=== PATIENT | female | born 1960 | race African-American/Black ===

== ENCOUNTER 2020-12-23 15:22 | Emergency (ER) | payer MEDICAID ==
[~2020-12-23] VITALS: Ht 160 cm; Wt 65.0 kg
[2020-12-23] MEDS ORDERED: OMEPRAZOLE 20MG CAPSULE EXTENDED RELEASE PO ONE (16:00)
[2020-12-23] MEDS ORDERED: HYDROCODONE/ACETAMINOPHEN 5/325MG TABLET PO ONE (16:00)
[2020-12-23] MEDS ORDERED: ONDANSETRON HCL 4MG/2ML INJ IM ONE (16:00)
[2020-12-23] MEDS ORDERED: MORPHINE SULFATE 4 MG/ML CPJ (NOT FOR IM USE) IV STA (17:55)
[2020-12-23] MEDS ORDERED: ONDANSETRON HCL 4MG/2ML INJ IV STA (17:55)
[2020-12-23] MEDS ORDERED: SODIUM CHLORIDE 0.9% 1,000 ML IV ONE (18:00)
[2020-12-23 18:31] LABS: BASOPHILS % 0.4 % (0.0-2.0); HEMATOCRIT. 34.1 % (36.0-48.0); HEMOGLOBIN. 11.5 g/dL (12.0-16.0); LYMPHOCYTES % 14.9 % (20.0-50.0); MEAN CORPUSCULAR HEMOGLOBIN 29.6 pg (28.0-32.0); MEAN CORPUSCULAR VOLUME 87.3 fL (81.0-99.0); MEAN PLATELET VOLUME 7.9 fl (7.4-10.4); MONOCYTES % 6.8 % (2.0-8.0); NEUTROPHILS % 74.9 % (40.0-76.0); PLATELET 199 x1000/uL (130-400); RED CELL DISTRIBUTION WIDTH 15.2 % (11.6-14.6)
[2020-12-23 18:38] LABS: CHLORIDE 110 mEq/L (98-107)
[2020-12-23] MEDS ORDERED: SIME125C MT (20:16)
[2020-12-23] MEDS ORDERED: ONDA4TAB5 MT (20:16)
[2020-12-23] MEDS ORDERED: OMEP20CA14 MT (20:16)
[2020-12-23] MEDS ORDERED: MAGNESIUM/ALUMINUM HYDROXIDE/SIMETHICONE 30ML UDC PO ONE (20:30)
[2020-12-23 20:40] VITALS: BP 158/69
== END 2020-12-23 20:44 | disposition home or self-care (01) ==
LOC: ER 15:22
DX: R10.13 Epigastric pain (principal); R03.0 Elevated blood-pressure reading, without diagnosis of hypertension
CPT/HCPCS: 36415; 71045; 80053; 83690; 83880; 85025; 85379; 93005; 96361; 96372; 96374; 96375; 99285; J2270; J2405; J7030